=== PATIENT | male | born 1955 | race Caucasian/White ===

== ENCOUNTER 2018-08-12 08:45 | Day surgery (SDC) | payer MEDICARE, OTHER ==
[~2018-08-12 08:45] MED LIST: Prevnar 13-Val Conj/PF 0.5 ML SYRINGE IM ONE
[2018-08-12 09:04] LABS: #Basophils 0.1 thou/uL (0.0-0.2); #Eosinphils 0.1 thou/uL (0.0-0.7); #Lymphocytes 2.7 thou/uL (1.20-3.40); #Monocytes 0.9 thou/uL (0.11-0.59); #Neutrophils 6.6 thou/uL (1.40-6.50); %Basophils 1.1 % (0.0-1.0); %Eosinophils 1.2 % (0.0-10.0); %Lymphocytes 26.1 % (21.0-51.0); %Monocytes 8.1 % (0.0-10.0); %Neutrophils 63.5 % (42.0-75.0); Hemoglobin 14.7 g/dL (14.0-18.0); Mean Corpuscular Hemoglobin 30.8 pg (27.0-31.0); Mean Corpuscular Volume 93.5 fL (78.0-98.0); Mean Platelet Volume 6.5 fL (7.4-10.4); Platelet Count 477 thou/uL (130-400); RBC Distribution Width 11.2 % (11.5-14.5); Red Blood Cell (RBC) Count 4.78 mill/uL (4.70-6.10); White Blood Cell (WBC) Count 10.4 thou/uL (4.8-10.8)
[2018-08-12 09:15] LABS: PTT 26.5 SEC (22.9-36.1); Prothrombin Time 13.6 SEC (12.0-14.7)
[2018-08-12] MEDS ORDERED: Midazolam HCl 2 mg/2 ml Vial ONE (09:48)
[2018-08-12] MEDS ORDERED: Fentanyl 100 MCG/2 ML VIAL ONE (09:48)
[2018-08-12] MEDS ORDERED: Sodium Bicarbonate 2.5 MEQ/5 ML VIAL ONE (09:56)
[2018-08-12 11:03] VITALS: BMI 25.3
--- NOTE | 2018-08-12 12:23 | CT ---
CT GUIDED RIGHT ILIAC BONE MARROW ASPIRATION AND BONE BIOPSY: Date: 08-12-18 History: Newly diagnosed mantle cell lymphoma. Technique: Informed consent was obtained from the patient. The right iliac crest was localized using CT guidance . The overlying skin was prepped and draped in the usual sterile manner. A 1% Lidocaine solution was used to anesthetize the overlying soft tissues. An 11 gauge Jamshidi needle was introduced into the r ight iliac crest. Bone marrow aspirate was removed. Specimen was given to pathology. Initial bone biopsy was performed. No adequate specimen obtained. Therefore, a second biopsy was obta ined which yielded an adequate biopsy specimen. IMPRESSION: Successful CT guided bone marrow aspiration and bone core biopsy. POS: [facility]
== END 2018-08-12 11:35 | disposition home or self-care (01) ==
LOC: CT 08:45
PROVIDERS: ATTEND Internal Medicine Hematology & Oncology
PROC: 0QB23ZX Excision of Right Pelvic Bone, Percutaneous Approach, Diagnostic (ICD-10-PCS; principal; 2018-08-12)
DX: C83.11 Mantle cell lymphoma, lymph nodes of head, face, and neck (principal); Z79.899 Other long term (current) drug therapy
CPT/HCPCS: 20225; 36415; 77002; 85025; 85097; 85610; 85730; 88184; 88237; 88264; 88280; 88305; 88311; 88313; 88341; 88342; J2250; J3010

== ENCOUNTER 2018-08-13 08:46 | Outpatient (CLI) | payer MEDICARE ==
--- NOTE | 2018-08-13 14:00 | PET ---
NUCLEAR MEDICINE FDG PET CT: (Positron Emission Tomography) DATE: 08/13/18 HISTORY: 63-year-old male with lymphoma of left tonsil, C83.11, initial encounter. COMPARISON: None. TECHNIQUE: IV injection F-18 Fluorodeoxyglucose (FDG) dose: 10.8 mCi PET and attenuation-correction CT performed from upper portion of head to proximal thighs. FINDINGS: SUV (standard uptake value) numbers given are maximum SUVs. QCLR used to obtained the SUVs. At the right tracheoesophageal groove, posterior to the right lobe of the thyroid gland, there is an approximately 1 x 1.5 cm soft tissue density nodule with mildly increased uptake, SUV 3.1. This could be a parathyroid adenoma or a mildly enlarged lymph node. A 2.0 x 1.2 cm left Level IIA lymph node has SUV of 3.8. There is no abnormal hypermetabolic activity in the thorax, abdomen, or pelvis. IMPRESSION: 1. Hypermetabolic left Level IIA cervical lymph node. 2. Mildly hypermetabolic nodule in the right tracheoesophageal groove, posterior to the right lobe o f the thyroid gland. This could be a parathyroid adenoma. The other possibility is that this could be a mildly enlarged lymph node. Recommend correlation with serum parathyroid hormone (PTH) levels and serum calcium levels. MEHRDAD Moraes POS: [facility]
== END 2018-08-13 08:47 | disposition home or self-care (01) ==
LOC: PET 08:46
PROVIDERS: ATTEND Internal Medicine Hematology & Oncology
DX: C85.91 Non-Hodgkin lymphoma, unspecified, lymph nodes of head, face, and neck (principal); E04.1 Nontoxic single thyroid nodule; R59.0 Localized enlarged lymph nodes
CPT/HCPCS: 78815; A9552

== ENCOUNTER 2018-09-20 01:56 | Outpatient (CLI) | payer MEDICARE, OTHER ==
[2018-09-20 14:55] LABS: #Basophils 0.1 thou/uL (0.0-0.2); #Eosinphils 0.1 thou/uL (0.0-0.7); #Lymphocytes 1.9 thou/uL (1.20-3.40); #Monocytes 0.8 thou/uL (0.11-0.59); #Neutrophils 4.3 thou/uL (1.40-6.50); %Basophils 1.4 % (0.0-1.0); %Eosinophils 1.7 % (0.0-10.0); %Lymphocytes 26.3 % (21.0-51.0); %Monocytes 10.9 % (0.0-10.0); %Neutrophils 59.7 % (42.0-75.0); Hemoglobin 14.2 g/dL (14.0-18.0); Mean Corpuscular HGB CONC 33.3 g/dL (32.0-36.0); Mean Corpuscular Hemoglobin 31.3 pg (27.0-31.0); Mean Corpuscular Volume 93.9 fL (78.0-98.0); Mean Platelet Volume 7.3 fL (7.4-10.4); Platelet Count 328 thou/uL (130-400); RBC Distribution Width 11.9 % (11.5-14.5); Red Blood Cell (RBC) Count 4.56 mill/uL (4.70-6.10); White Blood Cell (WBC) Count 7.1 thou/uL (4.8-10.8)
[2018-09-20 15:19] LABS: Anion Gap 13 mmol/L (10-20); BUN (Urea Nitrogen) 11 mg/dL (8.4-25.7); Calc. Creatinine Clearance 0 mL/min (70-130); Calcium 9.7 mg/dL (7.8-10.44); Carbon Dioxide 28 mmol/L (23-31); Chloride 104 mmol/L (98-107); Estimated GFR-MDRD 74; Glucose 88 mg/dL (80-115); Sodium 141 mmol/L (136-145)
== END 2018-09-20 01:57 | disposition home or self-care (01) ==
LOC: LABBT 01:56
PROVIDERS: ATTEND Surgery
DX: Z01.812 Encounter for preprocedural laboratory examination (principal); C85.90 Non-Hodgkin lymphoma, unspecified, unspecified site
CPT/HCPCS: 80048; 85025

== ENCOUNTER 2018-09-20 12:27 | Outpatient (CLI) | payer MEDICARE, OTHER | END 2018-09-20 12:28 | disposition home or self-care (01) | LOC: ULT 12:27 | PROVIDERS: ATTEND Internal Medicine Hematology & Oncology | DX: Z51.11 Encounter for antineoplastic chemotherapy (principal); C83.11 Mantle cell lymphoma, lymph nodes of head, face, and neck; I08.1 Rheumatic disorders of both mitral and tricuspid valves; Z79.899 Other long term (current) drug therapy; Z01.812 Encounter for preprocedural laboratory examination; C85.90 Non-Hodgkin lymphoma, unspecified, unspecified site | CPT/HCPCS: 80048; 85025; 93306 ==

== ENCOUNTER 2018-09-23 05:39 | Day surgery (SDC) | payer MEDICARE, OTHER ==
[2018-09-20 14:19] VITALS: BMI 26.4
[2018-09-23] MEDS ORDERED: Lidocaine 2% PF 5 ML VIAL ONE (06:47)
[2018-09-23] MEDS ORDERED: Bupivacaine/Epinephrine 0.25% 30 ML VIAL ONE (06:47)
[2018-09-23] MEDS ORDERED: Fentanyl 100 MCG/2 ML VIAL ONE (07:09)
[2018-09-23] MEDS ORDERED: Midazolam HCl 2 mg/2 ml Vial ONE (07:16)
--- NOTE | 2018-09-23 08:52 | RAD ---
CHEST ONE VIEW: Indication: Rule out pneumothorax. Comparison: None. FINDINGS: There is a right IJ chest wall port in place. Lungs are clear. Heart size is normal. No pneumothorax is demonstrated. IMPRESSION: No pneumothorax seen. POS: [facility]
--- NOTE | 2018-09-23 10:11 | OP ---
DATE OF PROCEDURE: 09/23/2018 PREOPERATIVE DIAGNOSIS: Small cell lymphoma. POSTOPERATIVE DIAGNOSIS: Small cell lymphoma. PROCEDURE PERFORMED: Tunneled central line and subcutaneous port (MediPort CT injectable). ANESTHESIA: TIVA, local. ESTIMATED BLOOD LOSS: Minimal. COMPLICATIONS: None. SPECIMENS: None. FINDINGS: Tip of the catheter was at atriocaval junction. DESCRIPTION OF PROCEDURE: Th patient was taken to the operating room and laid supine on the operating room table. After sedation was obtained, bilateral neck and chest were prepped and draped in a sterile fashion. Local anesthetic was infiltrated over the right internal jugular vein. Internal jugular vein was cannulated using a 22-gauge finder needle, followed by a Seldinger needle. Wire was passed into the superior cava under fluoro guidance. A small amirah was made at the wire entrance site. A separate 3-cm incision was made in the right upper chest. Subcutaneous pocket was made below the lower incision. Tubing for the MediPort tunneled from the inferior to superior incision. The introducer sheath was placed over the wire into the superior vena cava under fluoro guidance. The dilator and wire were removed and the end of the catheter was sewed into the sheath. The sheath was peeled away. The end of the catheter was sewed. MediPort tubing was at the tip of the atriocaval junction. MediPort tubing was cut to fit the MediPort at the lower incision, connected to the MediPort, which was sewn to the chest wall in the subcutaneous pocket using Prolene. The MediPort was flushed and robert blood without difficulty, flushed with a heparin flush. The wounds were irrigated and closing using 4-0 Monocryl and Dermabond. The patient was sent to Recovery in stable condition. All instrument counts, needle counts, and lap counts were correct. Job ID: [id number]
[2018-09-23] MEDS ORDERED: PROPOFOL 200 MG/20 ML VIAL ONE (10:33)
== END 2018-09-23 09:30 | disposition home or self-care (01) ==
LOC: SDC 05:39
PROVIDERS: ATTEND Surgery
PROC: 0JH63WZ Insertion of Totally Implantable Vascular Access Device into Chest Subcutaneous Tissue and Fascia, Percutaneous Approach (ICD-10-PCS; principal; 2018-09-23)
DX: C83.00 Small cell B-cell lymphoma, unspecified site (principal); Z79.899 Other long term (current) drug therapy
CPT/HCPCS: 36561; 71045; C1788; J1642; J2001; J2250; J2704; J3010

== ENCOUNTER 2018-10-26 07:58 | Inpatient (IN) | payer MEDICARE, OTHER ==
[2018-10-26] MEDS ORDERED: Acetaminophen 500 MG TAB PO PRN (11:44)
[2018-10-26] MEDS ORDERED: diphenhydrAMINE 25 MG in Sodium Chloride 0.9% 50 ML IVPB SCH (12:15)
[2018-10-26] MEDS ORDERED: Rituximab 100 MG in Sodium Chloride 0.9% 100 ML IVPB SCH (12:30)
[2018-10-26 12:39] VITALS: BMI 25.7
[2018-10-26] MEDS: prednisoLONE 1% Ophth Susp 5 ml Bottle EA EYE SCH ×3 (12:55→20:52)
[2018-10-26 13:00] LABS: Anion Gap 12 mmol/L (10-20); BUN (Urea Nitrogen) 19 mg/dL (8.4-25.7); Calc. Creatinine Clearance 85 mL/min (70-130); Calcium 9.2 mg/dL (7.8-10.44); Carbon Dioxide 25 mmol/L (23-31); Chloride 104 mmol/L (98-107); Estimated GFR-MDRD 66; Glucose 89 mg/dL (80-115); Potassium 3.8 mmol/L (3.5-5.1); Sodium 137 mmol/L (136-145); Uric Acid 5.6 mg/dL (3.5-7.2)
[2018-10-26] MEDS ORDERED: SODIUM CHLORIDE 0.9% IVPB SCH ×2 (13:00)
[2018-10-26] MEDS ORDERED: RITUXIMAB IVPB SCH ×2 (13:00)
[2018-10-26 13:07] LABS: Hemoglobin 12.7 g/dL (14.0-18.0); Mean Corpuscular Hemoglobin 31.4 pg (27.0-31.0); Mean Corpuscular Volume 92.4 fL (78.0-98.0); Mean Platelet Volume 6.4 fL (7.4-10.4); Platelet Count 421 thou/uL (130-400); RBC Distribution Width 11.9 % (11.5-14.5); Red Blood Cell (RBC) Count 4.04 mill/uL (4.70-6.10); White Blood Cell (WBC) Count 7.1 thou/uL (4.8-10.8)
[2018-10-26 13:21] LABS: Band 9 % (5-11); Lymphocytes 21 % (21-51); MDiff Complete? YES; Monocytes 7 % (0-10); Neutrophil 63 % (42-75); Platelet Morphology Comment Appears Increased; RBC Morphology Normal
--- NOTE | 2018-10-26 16:42 | HP ---
The patient is being admitted for chemotherapy. ONCOLOGIST: Melvin Blake MD CHIEF COMPLAINT: Treatment for chemotherapy. HISTORY OF PRESENT ILLNESS: Mr. Fitzgerald is a pleasant 63-year-old gentleman, who has a history of mantle cell lymphoma, which is listed as stage IV. He is treated by Dr. Melvin Blake and he has had a couple of rounds of chemotherapy prior to this. Dr. Blake would like him admitted inpatient to monitor him for potential signs of adverse reactions to the chemotherapy. Currently, the patient does not have any complaints. He denies any headache or dizziness. No chest pain or shortness of breath. No PND. No orthopnea. No abdominal pain. No nausea. No vomiting. No leg pain or leg swelling. He says that he has had a couple of treatments before without any difficulty, but this will be the first time with this particular type of chemotherapy. REVIEW OF SYSTEMS: All systems were reviewed and are negative except for that mentioned in the history of present illness. PAST MEDICAL HISTORY: Significant for mantle cell carcinoma and non-Hodgkin's lymphoma, peptic ulcer disease as well as colon polyps. PAST SURGICAL HISTORY: He has had a left orchidectomy. He has had an EGD and colonoscopy as well as a tonsillectomy. FAMILY HISTORY: There is no history of any heritable diseases. ALLERGIES: NO KNOWN DRUG ALLERGIES. SOCIAL HISTORY: He is . He is a nonsmoker. He occasionally drinks a beer and he would like to be a full code. CURRENT MEDICATIONS: He occasionally takes Zofran and prednisone after chemotherapy rounds. PHYSICAL EXAMINATION: GENERAL: He is alert and oriented x4, in no acute distress. He is well developed and well nourished, and very well groomed. VITAL SIGNS: Blood pressure was 132/79, heart rate 59, respiratory rate of 16, and temperature was 98. HEENT: His pupils are equal, round, and reactive. Extraocular muscles are intact. His sclerae are anicteric. Throat; no erythema, no exudates. NECK: No adenopathy. No bruits. LUNGS: Clear to auscultation. There are no wheezing or rales. No rhonchi. CARDIOVASCULAR: He has a normal S1 and S2. There is no S3 or S4. No murmurs, clicks, or rubs. ABDOMEN: Soft. It is nontender and nondistended. Positive for bowel sounds. No rebound or guarding. EXTREMITIES: There is no clubbing or cyanosis. No edema. NEUROLOGICAL: The exam is grossly nonfocal. LABORATORY RESULTS: White blood cell count 7.1, hemoglobin 12.7, hematocrit is 37.4, and platelet count is 421. Sodium 137, potassium 3.8, chloride is 104, CO2 is 25, BUN of 19, creatinine 1.11, and glucose is 89. LDH was 232. ASSESSMENT AND PLAN: This is a pleasant 63-year-old gentleman, who is being admitted for chemotherapy. The plan is for him to undergo Rituxan and nova-C. His oncologist would like for him to be monitored with regard to his complete blood cell count and his neurological status. He anticipates that he will need to be in the hospital anywhere from about 3 to 5 days. He will therefore be admitted and we will monitor a daily CBC as well as uric acid and basic metabolic panel. Neuro checks periodically will make sure to manage any symptoms such as nausea or pain that may arise. Job ID: [id number]
--- NOTE | 2018-10-26 17:21 | CON ---
DATE OF CONSULTATION: 10/26/2018 REASON FOR CONSULT: Mantle cell lymphoma. HISTORY OF PRESENT ILLNESS: Mr. Fitzgerald is a 63-year-old gentleman, who was diagnosed with mantle cell lymphoma in July of 2018. He had a swollen tonsil and saw Dr. Alfaro, who performed a bilateral tonsillectomy and confirmed mantle cell lymphoma. He had a CT of the neck performed, which showed the enlarged left palatine tonsil. He underwent PET scan, which was negative except for the left level 2A lymph node with an SUV of 3.8. His bone marrow biopsy was negative for lymphoma. He then underwent a colonoscopy and endoscopy, which revealed mantle cell lymphoma in his small and large intestines. He began chemotherapy with a NORDIC regimen, which consist of Maxi-CHOP rotating with HiDAC. He underwent his cycle 1 of Maxi-CHOP on October 04. He tolerated it well with mild nausea and constipation. He did have some mucositis and alopecia. He is being admitted today for cycle 2 of NORDIC consisting of Rituxan and nova-C. PAST MEDICAL HISTORY: 1. Non-Hodgkin's lymphoma, 2011. 2. Peptic ulcer. 3. Colon polyps. PAST SURGICAL HISTORY: 1. Left orchiectomy. 2. Endoscopy. 3. Tonsillectomy. ALLERGIES: NO KNOWN DRUG ALLERGIES. HOME MEDICATIONS: 1. Zofran p.r.n. 2. Prednisone with chemo. FAMILY HISTORY: No family history of cancer. SOCIAL HISTORY: , has two kids, live with his spouse. No alcohol, tobacco, or illicit drug use. REVIEW OF SYSTEMS: A 10-point review of systems is negative except for noted in the HPI. PHYSICAL EXAMINATION: VITAL SIGNS: Temperature 97.6, pulse is 72, respiratory rate 18, BP is 129/85. He is 98% on room air. GENERAL: This is a well-developed, well-nourished male, in no acute distress. HEENT: Normocephalic, atraumatic. Pupils are equal and reactive to light. He has alopecia. NECK: Supple. He has an incision from his left cervical lymph node. CV is regular. LUNGS: Clear. ABDOMEN: Soft and nontender. Bowel sounds are positive. EXTREMITIES: No clubbing, cyanosis, or edema. SKIN: No rash. HEMATOLOGICAL: No petechiae or purpura. NEUROLOGICAL: Nonfocal. PSYCH: The patient is alert, oriented, and appropriate. PERTINENT LABS AND X-RAYS: Current WBCs are 7.1, hemoglobin 12.7, hematocrit 37.4, platelet count 421,000, neutrophils are 63%, bands 9%, lymphocytes 21%. Sodium is 137, potassium 3.8, chloride 104, CO2 is 25, BUN is 19, creatinine 1.11, glucose is 89, uric acid is 5.6, calcium 9.2, LDH is 232. ASSESSMENT: 1. Stage IV mantle cell lymphoma. 2. Admission for cycle 2 of NORDIC consisting of HiDAC. DISCUSSION: The patient has a 3-day treatment. He will be in the hospital to monitor for any neurological or visual changes. He will receive generic Neulasta subcu injection. We will follow his blood counts and discharge once stable. Thank you for the consult. Job ID: [id number]
[2018-10-26] MEDS: Palonosetron HCl 0.25 MG in Sodium Chloride 0.9% 50 ML IVPB SCH (20:21)
[2018-10-26] MEDS: Dexamethasone 10 MG in Sodium Chloride 0.9% 50 ML IVPB SCH (20:48)
[2018-10-26] MEDS: SODIUM CHLORIDE 0.9% IJ SCH (21:42)
[2018-10-26] MEDS: CYTARABINE IJ SCH (21:42)
[2018-10-27] MEDS: prednisoLONE 1% Ophth Susp 5 ml Bottle EA EYE SCH ×6 (02:14→20:53)
[2018-10-27 04:28] LABS: #Basophils 0.1 thou/uL (0.0-0.2); #Eosinphils 0.1 thou/uL (0.0-0.7); #Lymphocytes 0.4 thou/uL (1.20-3.40); #Monocytes 0.1 thou/uL (0.11-0.59); #Neutrophils 10.8 thou/uL (1.40-6.50); %Basophils 0.5 % (0.0-1.0); %Eosinophils 0.4 % (0.0-10.0); %Monocytes 1.2 % (0.0-10.0); %Neutrophils 94.9 % (42.0-75.0); Hemoglobin 12.7 g/dL (14.0-18.0); Mean Corpuscular HGB CONC 33.6 g/dL (32.0-36.0); Mean Corpuscular Volume 92.3 fL (78.0-98.0); Mean Platelet Volume 6.7 fL (7.4-10.4); Platelet Count 401 thou/uL (130-400); RBC Distribution Width 12.1 % (11.5-14.5); Red Blood Cell (RBC) Count 4.09 mill/uL (4.70-6.10); White Blood Cell (WBC) Count 11.4 thou/uL (4.8-10.8)
[2018-10-27 04:32] LABS: Anion Gap 13 mmol/L (10-20); BUN (Urea Nitrogen) 17 mg/dL (8.4-25.7); Calc. Creatinine Clearance 84 mL/min (70-130); Carbon Dioxide 23 mmol/L (23-31); Chloride 108 mmol/L (98-107); Estimated GFR-MDRD 65; Glucose 149 mg/dL (80-115); Potassium 4.2 mmol/L (3.5-5.1); Sodium 140 mmol/L (136-145); Uric Acid 6.1 mg/dL (3.5-7.2)
--- NOTE | 2018-10-27 11:15 | PRG ---
DATE OF SERVICE: 10/27/2018 SUBJECTIVE: The patient has reported a few various changes after treatment. His vision has been altered a bit. He has had a little tingling in his left arm and some involuntary movement in his left fifth finger, which has completely resolved. At this point, he feels like he has a good understanding of the treatment regimen and potential options and with the effects that the current regimen has had, although he feels well in general, he is concerned about continuing on because of the potential for neurologic symptom. OBJECTIVE: VITAL SIGNS: Temperature is 97.7, pulse 79, respirations 18, O2 saturation 93% on room air, BP 138/70. GENERAL APPEARANCE: Age-appropriate male, in no distress. HEART: Regular rate and rhythm without murmurs, gallops, or rubs. LUNGS: Clear to auscultation bilaterally. Good chest wall expansion and air exchange. ABDOMEN: Soft, nontender, and nondistended. Positive bowel sounds. No masses. No organomegaly. EXTREMITIES: Warm and dry with no edema. LABORATORY DATA: White count 11.4, hemoglobin 12.7, platelets 401. Chemistries notable for LDH of 229, glucose 149, chloride 108. IMPRESSION AND PLAN: Mantle cell lymphoma. The patient is receiving second course of [place] consisting of HiDAC per Oncology, discussed with Tatiana Root. The patient had some neurologic symptoms this morning. He is contemplating his decision to continue with the next dose today. He will be observed from a neurologic standpoint and then make that decision before the next dose was due this afternoon. At this point, it sounds like he is potentially leaning against continuing on with the therapy. I will continue to monitor. Job ID: [id number]
[2018-10-27] MEDS ORDERED: Bisacodyl 5 MG TAB PO SCH (18:15)
[2018-10-27] MEDS: Palonosetron HCl 0.25 MG in Sodium Chloride 0.9% 50 ML IVPB SCH (20:27)
[2018-10-27] MEDS: Dexamethasone 10 MG in Sodium Chloride 0.9% 50 ML IVPB SCH (20:56)
[2018-10-27] MEDS: SODIUM CHLORIDE 0.9% IJ SCH (21:45)
[2018-10-27] MEDS: CYTARABINE IJ SCH (21:45)
[2018-10-28] MEDS: prednisoLONE 1% Ophth Susp 5 ml Bottle EA EYE SCH ×6 (01:21→20:52)
[2018-10-28] MEDS ORDERED: Sodium Chloride 0.9% 20 ML ONE (08:02)
--- NOTE | 2018-10-28 08:06 | PDOC.PN ---
- Subjective Encounter Start Date: 10/28/18 Encounter Start Time: 09:00 Subjective: Patient reports no further vision problems or tingling. No N/V. No pain. - Objective MAR Reviewed: Yes Vital Signs & Weight: Vital Signs (12 hours) Temp Pulse Resp BP Pulse Ox 10/28/18 04:00 98.2 F 51 L 16 110/61 94 L 10/27/18 23:31 98.2 F 72 16 131/68 94 L Weight Weight 200 lb I&O: 10/27/18 10/28/18 10/29/18 06:59 06:59 06:59 Intake Total 2 2123 Balance 2211 2123 Result Diagrams: 10/28/18 07:54 10/28/18 07:54 Phys Exam - Physical Examination Constitutional: NAD HEENT: moist MMs Respiratory: no wheezing, no rales, no rhonchi Cardiovascular: RRR, no significant murmur Gastrointestinal: soft, positive bowel sounds Musculoskeletal: no edema Neurological: non-focal, moves all 4 limbs Psychiatric: normal affect, A&O x 3 Dx/Plan (1) Mantle cell lymphoma Code(s): C83.10 - MANTLE CELL LYMPHOMA, UNSPECIFIED SITE Status: Acute Qualifiers: Lymphoma site: multiple regions Qualified Code(s): C83.18 - Mantle cell lymphoma, lymph nodes of multiple sites - Plan cont current plan of care Likely home tomorrow when ok'd with Heme/Onc * . - Discharge Day Encounter end time: 09:20
[2018-10-28 08:07] LABS: #Lymphocytes 0.2 thou/uL (1.20-3.40); #Monocytes 0.2 thou/uL (0.11-0.59); %Lymphocytes 1.7 % (21.0-51.0); %Monocytes 1.2 % (0.0-10.0); %Neutrophils 97.1 % (42.0-75.0); Hemoglobin 12.7 g/dL (14.0-18.0); Mean Corpuscular HGB CONC 33.9 g/dL (32.0-36.0); Mean Corpuscular Hemoglobin 30.7 pg (27.0-31.0); Mean Corpuscular Volume 90.6 fL (78.0-98.0); Mean Platelet Volume 6.8 fL (7.4-10.4); Platelet Count 386 thou/uL (130-400); RBC Distribution Width 12.1 % (11.5-14.5); Red Blood Cell (RBC) Count 4.13 mill/uL (4.70-6.10); White Blood Cell (WBC) Count 12.3 thou/uL (4.8-10.8)
[2018-10-28 08:27] LABS: Anion Gap 14 mmol/L (10-20); BUN (Urea Nitrogen) 13 mg/dL (8.4-25.7); Calc. Creatinine Clearance 89 mL/min (70-130); Calcium 9.1 mg/dL (7.8-10.44); Carbon Dioxide 24 mmol/L (23-31); Chloride 106 mmol/L (98-107); Estimated GFR-MDRD 70; Glucose 142 mg/dL (80-115); Potassium 3.6 mmol/L (3.5-5.1); Sodium 140 mmol/L (136-145); Uric Acid 5.5 mg/dL (3.5-7.2)
[2018-10-28] MEDS ORDERED: PEGFILGRASTIM-JMDB 6 MG/0.6 ML SYRINGE SQ SCH (12:00)
[2018-10-28] MEDS: Bisacodyl 5 MG TAB PO SCH ×2 (16:50→20:53)
[2018-10-29] MEDS: prednisoLONE 1% Ophth Susp 5 ml Bottle EA EYE SCH ×4 (01:15→12:53)
[2018-10-29 04:30] LABS: #Lymphocytes 0.6 thou/uL (1.20-3.40); #Monocytes 0.4 thou/uL (0.11-0.59); %Basophils 0.1 % (0.0-1.0); %Eosinophils 0.1 % (0.0-10.0); %Lymphocytes 4.9 % (21.0-51.0); %Monocytes 3.4 % (0.0-10.0); %Neutrophils 91.6 % (42.0-75.0); Hemoglobin 11.6 g/dL (14.0-18.0); Mean Corpuscular HGB CONC 33.9 g/dL (32.0-36.0); Mean Corpuscular Hemoglobin 31.4 pg (27.0-31.0); Mean Corpuscular Volume 92.6 fL (78.0-98.0); Mean Platelet Volume 6.9 fL (7.4-10.4); Platelet Count 322 thou/uL (130-400); RBC Distribution Width 12.3 % (11.5-14.5); Red Blood Cell (RBC) Count 3.68 mill/uL (4.70-6.10)
[2018-10-29 04:42] LABS: Anion Gap 11 mmol/L (10-20); BUN (Urea Nitrogen) 18 mg/dL (8.4-25.7); Calc. Creatinine Clearance 96 mL/min (70-130); Calcium 8.3 mg/dL (7.8-10.44); Carbon Dioxide 26 mmol/L (23-31); Chloride 107 mmol/L (98-107); Estimated GFR-MDRD 77; Glucose 83 mg/dL (80-115); Potassium 3.6 mmol/L (3.5-5.1); Sodium 140 mmol/L (136-145)
--- NOTE | 2018-10-29 07:15 | PDOC.PN ---
- Subjective Encounter Start Date: 10/29/18 Encounter Start Time: 08:00 Subjective: Patient without complaints. No vision problems. No numbness/tingling /weak. -: No N/V. Eating well. - Objective MAR Reviewed: Yes Vital Signs & Weight: Vital Signs (12 hours) Temp Pulse Resp BP Pulse Ox 10/29/18 03:52 98.4 F 58 L 16 99/59 L 97 10/28/18 23:53 97.6 F 56 L 16 91/55 L 96 10/28/18 20:00 98.2 F 67 16 120/67 93 L 10/28/18 19:50 93 L Weight Weight 200 lb I&O: 10/28/18 10/29/18 10/30/18 06:59 06:59 06:59 Intake Total 2124 1320 Balance 2124 1320 Result Diagrams: 10/29/18 04:10 10/29/18 04:10 Phys Exam - Physical Examination Constitutional: NAD HEENT: moist MMs Respiratory: no wheezing, no rales, no rhonchi Cardiovascular: RRR, no significant murmur Gastrointestinal: soft, non-tender, positive bowel sounds Musculoskeletal: no edema Neurological: non-focal, moves all 4 limbs Psychiatric: normal affect, A&O x 3 Dx/Plan (1) Mantle cell lymphoma Code(s): C83.10 - MANTLE CELL LYMPHOMA, UNSPECIFIED SITE Status: Acute Qualifiers: Lymphoma site: multiple regions Qualified Code(s): C83.18 - Mantle cell lymphoma, lymph nodes of multiple sites - Plan cont current plan of mcc today, f/u with Dr. Blake. He has called in the prednisolone eye -: drops to be used q4 hours today and tomorrow. * . - Discharge Day Encounter end time: 08:30
[2018-10-29 09:23] VITALS: BP 130/60; TEMP 97.8
--- NOTE | 2018-10-29 11:37 | DIS ---
DATE OF ADMISSION: 10/26/2018 DATE OF DISCHARGE: 10/29/2018 PRIMARY CARE PHYSICIAN: Megan Andujar PRIMARY ONCOLOGIST: Melvin Blake MD REASON FOR ADMISSION: Chemotherapy treatment. DIAGNOSIS AT DISCHARGE: Mantle cell lymphoma. PROCEDURES: None. CONSULTATIONS: Heme Oncology, Dr. Blake. HISTORY OF PRESENT ILLNESS: This is a 63-year-old white male with a history of mantle cell lymphoma stage IV, treated by Dr. Melvin Blake. He has had some previous chemotherapy and Dr. Blake admitted him for monitoring with his next round of chemotherapy. The patient got cycle 2 of NORDIC consisting of HiDAC. He was given a 3-day treatment. First day, he did have some vision changes and tingling in his fingers. He did have prednisolone ophthalmic drops given in the hospital. The symptoms resolved and he has not had any recurrence. The patient finished his chemotherapy yesterday and then had Neulasta subcutaneous injection early this morning around 1 o'clock. He is doing well today. His white blood cell count remained stable at 12. No other cell count lines have dropped and he is asymptomatic. He is being discharged home. DISCHARGE MANAGEMENT: Discharged home. FOLLOWUP: Follow up with Dr. Melvin Blake on November 15. ACTIVITY: As tolerated. DIET: Regular diet. MEDICATIONS: 1. Prednisolone 1% ophthalmic suspension one drop in each eye q.4 hours today and tomorrow. Prescription called into the pharmacy by Dr. Blake. 2. Continue multivitamin 2 tablets daily. 3. Continue Zantac 150 mg twice a day. Job ID: [id number]
== END 2018-10-29 17:09 | disposition home or self-care (01) | DRG 847 ==
LOC: ONC 11:13
PROVIDERS: ADMIT Internal Medicine; ATTEND Internal Medicine
DX: Z51.11 Encounter for antineoplastic chemotherapy (principal); C83.18 Mantle cell lymphoma, lymph nodes of multiple sites; Z90.79 Acquired absence of other genital organ(s)
CPT/HCPCS: 36415; 80048; 83615; 84550; 85025; J1100; J1200; J1453; J2469; J3490; J7050; J9100; J9310; J9312; Q5108

== ENCOUNTER 2018-12-06 08:45 | Inpatient (IN) | payer MEDICARE, OTHER ==
[2018-12-07 11:43] VITALS: BMI 26.8
[2018-12-07 12:05] LABS: Band 4 % (5-11); Eosinophils 2 % (0-10); Hemoglobin 11.2 g/dL (14.0-18.0); Lymphocytes 9 % (21-51); MDiff Complete? YES; Mean Corpuscular HGB CONC 34.5 g/dL (32.0-36.0); Mean Corpuscular Hemoglobin 31.7 pg (27.0-31.0); Mean Corpuscular Volume 91.9 fL (78.0-98.0); Mean Platelet Volume 6.4 fL (7.4-10.4); Monocytes 15 % (0-10); Neutrophil 69 % (42-75); Platelet Count 369 thou/uL (130-400); Platelet Morphology Comment Appears Adequate; RBC Distribution Width 14.6 % (11.5-14.5); Red Blood Cell (RBC) Count 3.51 mill/uL (4.70-6.10)
[2018-12-07 12:07] LABS: Anion Gap 12 mmol/L (10-20); BUN (Urea Nitrogen) 14 mg/dL (8.4-25.7); Calc. Creatinine Clearance 98 mL/min (70-130); Carbon Dioxide 25 mmol/L (23-31); Chloride 106 mmol/L (98-107); Estimated GFR-MDRD 80; Glucose 102 mg/dL (80-115); Potassium 3.8 mmol/L (3.5-5.1); Sodium 139 mmol/L (136-145); Uric Acid 5.4 mg/dL (3.5-7.2)
[2018-12-07] MEDS ORDERED: Acetaminophen 500 MG TAB PO PRN (12:16)
[2018-12-07] MEDS ORDERED: diphenhydrAMINE 25 MG in Sodium Chloride 0.9% 50 ML IVPB SCH (12:30)
[2018-12-07] MEDS ORDERED: Rituximab 100 MG in Sodium Chloride 0.9% 100 ML IVPB SCH (12:30)
[2018-12-07] MEDS ORDERED: Dexamethasone 10 MG in Sodium Chloride 0.9% 50 ML IVPB SCH (12:30)
[2018-12-07] MEDS ORDERED: Palonosetron HCl 0.25 MG in Sodium Chloride 0.9% 50 ML IVPB SCH (12:30)
[2018-12-07] MEDS ORDERED: SODIUM CHLORIDE 0.9% IVPB SCH ×2 (13:00→13:30)
[2018-12-07] MEDS ORDERED: RITUXIMAB IVPB SCH ×2 (13:00→13:30)
[2018-12-07] MEDS: prednisoLONE 1% Ophth Susp 5 ml Bottle EA EYE SCH ×3 (13:43→19:44)
[2018-12-07] MEDS ORDERED: prednisoLONE 1% Ophth Susp 5 ml Bottle EA EYE SCH (17:00)
[2018-12-07] MEDS: Docusate 100 MG CAP PO PRN (18:28)
[2018-12-07] MEDS: Bisacodyl 5 MG TAB PO PRN (18:28)
[2018-12-07] MEDS ORDERED: Famotidine 20 MG TAB PO PRN (21:00)
[2018-12-07] MEDS: CYTARABINE IJ SCH (21:04)
[2018-12-07] MEDS: SODIUM CHLORIDE 0.9% IJ SCH (21:04)
[2018-12-07] MEDS: Multivit, Chewable SF 1 TAB PO SCH (21:06)
--- NOTE | 2018-12-07 21:43 | HP ---
CHIEF COMPLAINT: Chemotherapy for mantle cell carcinoma. HISTORY: This patient is a 63-year-old male, who presents to the emergency department as a direct admission from the [facility] for IV Yu-C treatment for mantle cell lymphoma, which was originally diagnosed in the tonsils. The patient has been through 3 rounds of chemotherapy. He did have a touch of neuropathy with previous round and now he has had some adjustments in his dosing in order to minimize the risk for that. However, he is here at this time to have a chemo infusion and monitoring for neuropathy in blood dyscrasias. Overall, the patient says he is doing quite well. He has had some problems with mild ileus in the past, but has been taking some medications on his own in order to maintain his bowel habits. Otherwise, he has no major complaints. REVIEW OF SYSTEMS: Negative. All systems reviewed and all pertinent positives and negatives noted in the history of present illness. Specifically, he has had normal appetite. Normal bowel and bladder habits. No musculoskeletal symptoms. No significant neurologic symptoms. PAST MEDICAL HISTORY: Notable for mantle cell carcinoma/non-Hodgkin lymphoma. He has had a history of peptic ulcer disease and colon polyps. PAST SURGICAL HISTORY: Left orchiectomy, EGD and colonoscopy, and tonsillectomy. FAMILY HISTORY: No history of any heritable diseases. SOCIAL HISTORY: The patient is a nonsmoker, nondrug user. He occasionally drinks beer. He is and he is full code. His would be his surrogate decision maker should that become necessary. ALLERGIES: NONE. HOME MEDICATIONS: Docusate, Dulcolax, prednisolone eye drops, Zantac 150 b.i.d. p.r.n., and multivitamin. PHYSICAL EXAMINATION: VITAL SIGNS: Temperature 97.9, pulse 60, respirations 16, O2 saturation 99% on room air, blood pressure 127/78. GENERAL APPEARANCE: Age-appropriate male, in no distress. Has alopecia. HEENT: PERRL. No OP lesions. NECK: Supple and symmetric. No lymphadenopathy, JVD, or carotid bruits. HEART: Regular rate and rhythm. No murmurs, gallops, or rubs. LUNGS: Clear to auscultation bilaterally with good chest wall expansion and air exchange. ABDOMEN: Soft, nontender, nondistended. Positive bowel sounds. No masses. No organomegaly. EXTREMITIES: No cyanosis, clubbing, or edema. NEUROLOGIC: The patient appears to have normal sensation and spontaneous movement of all extremities. LABORATORY DATA: White count 6.0, hemoglobin 11.2, platelets 369. Chemistries normal. LDH is 266. IMPRESSION AND PLAN: Mantle cell lymphoma. The patient is to receive iv Yu-C. We will continue to monitor for neutropenia or blood dyscrasias as well as neurotoxicity with frequent neurological assessment. The patient will need to stay approximately 3 days depending on his outcome. We will continue to monitor his bowel function as well. Job ID: [id number]
[2018-12-08] MEDS: prednisoLONE 1% Ophth Susp 5 ml Bottle EA EYE SCH ×6 (00:44→20:09)
[2018-12-08 04:52] LABS: #Basophils 0.1 thou/uL (0.0-0.2); #Lymphocytes 0.3 thou/uL (1.20-3.40); #Monocytes 0.1 thou/uL (0.11-0.59); #Neutrophils 9.1 thou/uL (1.40-6.50); %Basophils 0.7 % (0.0-1.0); %Eosinophils 0.2 % (0.0-10.0); %Lymphocytes 3.1 % (21.0-51.0); %Monocytes 1.5 % (0.0-10.0); %Neutrophils 94.5 % (42.0-75.0); Hemoglobin 11.4 g/dL (14.0-18.0); Mean Corpuscular HGB CONC 34.1 g/dL (32.0-36.0); Mean Corpuscular Hemoglobin 31.5 pg (27.0-31.0); Mean Corpuscular Volume 92.4 fL (78.0-98.0); Mean Platelet Volume 6.4 fL (7.4-10.4); Platelet Count 401 thou/uL (130-400); RBC Distribution Width 14.6 % (11.5-14.5); Red Blood Cell (RBC) Count 3.61 mill/uL (4.70-6.10); White Blood Cell (WBC) Count 9.6 thou/uL (4.8-10.8)
[2018-12-08 05:17] LABS: Anion Gap 11 mmol/L (10-20); BUN (Urea Nitrogen) 13 mg/dL (8.4-25.7); Calc. Creatinine Clearance 99 mL/min (70-130); Calcium 9.1 mg/dL (7.8-10.44); Carbon Dioxide 24 mmol/L (23-31); Chloride 109 mmol/L (98-107); Estimated GFR-MDRD 81; Glucose 137 mg/dL (80-115); Potassium 4.2 mmol/L (3.5-5.1); Sodium 140 mmol/L (136-145); Uric Acid 6.1 mg/dL (3.5-7.2)
[2018-12-08] MEDS: Multivit, Chewable SF 1 TAB PO SCH ×2 (08:33→20:10)
[2018-12-08] MEDS: CYTARABINE IJ SCH ×2 (09:25→22:24)
[2018-12-08] MEDS: SODIUM CHLORIDE 0.9% IJ SCH ×2 (09:25→22:24)
[2018-12-08] MEDS ORDERED: Palonosetron HCl 0.25 MG in Sodium Chloride 0.9% 50 ML IVPB SCH (12:00)
[2018-12-08] MEDS ORDERED: Dexamethasone 10 MG in Sodium Chloride 0.9% 50 ML IVPB SCH (12:00)
--- NOTE | 2018-12-08 14:46 | PRG ---
DATE OF SERVICE: 12/08/2018 SUBJECTIVE: The patient is seen and examined at the bedside. He is doing well. The only complaint he has is slight tingling in his fingers which is similar to the tingling he had after the first round of chemotherapy he received before. Otherwise, he does not have much of any other complaints to offer. OBJECTIVE: VITAL SIGNS: Blood pressure is 123/70, pulse is 85, temperature is 98.3, respirations 18, and O2 saturation is 95% on room air. HEENT: His head is atraumatic and normocephalic. Eyes are PERRLA. Sclerae are nonicteric. Oral mucosa is moist. NECK: Supple. LUNGS: Clear. HEART: S1 and S2 normal. No S3. No S4. No any murmur. ABDOMEN: Soft and nontender. EXTREMITIES: No clubbing, cyanosis, or edema. NEUROLOGICAL: He is alert and oriented x4. There are no any motor deficits. There is slightly diminished sensation over his fingertips bilaterally similar on both hands. LABORATORY DATA: Labs showed white count of 9.6, hemoglobin 11.4, hematocrit 33.4, platelet count is 401. Sodium of 140, potassium 4.2, chloride 109, CO2 of 24, BUN 13, creatinine 0.94. Lactate dehydrogenase 237. IMPRESSION AND PLAN: Mantle cell lymphoma. The patient is on cytarabine, dexamethasone, fosaprepitant, palonosetron, pegfilgrastim. He is doing well. He has just slight numbness in his fingertips bilaterally, but otherwise he is not showing any neurological involvement. His white count is holding in good range. It is 9.6, and all other cell counts are normal too, so we will continue the same regimen daily as per Dr. Blake's orders and daily labs with uric acid, LDH, BMP, and CBC. Job ID: [id number]
[2018-12-08] MEDS: Bisacodyl 5 MG TAB PO PRN (20:10)
[2018-12-08] MEDS: Docusate 100 MG CAP PO PRN (20:10)
--- NOTE | 2018-12-08 21:13 | CON ---
DATE OF CONSULTATION: REASON FOR CONSULTATION: Mantle cell lymphoma. HISTORY OF PRESENT ILLNESS: A 63-year-old male with stage IV high-risk mantle cell lymphoma, currently on [place] regimen, which consists of alternating Maxi-CHOP and/or HiDAC 3 cycles each, being admitted for cycle 4 for high-dose Yu-C and rituximab. The patient is feeling well and has no specific complaints other than mild constipation and fatigue. The patient is currently receiving a 50% dose reduction from the standard dosing of Yu-C due to patient concerns. He currently has very minimal numbness in his fingertips. No other complaints. REVIEW OF SYSTEMS: Ten-point review of systems negative except as per HPI. PAST MEDICAL HISTORY: Mantle cell lymphoma and peptic ulcer disease. PAST SURGICAL HISTORY: Left orchiectomy, EGD, colonoscopy, and tonsillectomy. FAMILY HISTORY: No cancers. SOCIAL HISTORY: Nonsmoker. Occasional alcohol. ALLERGIES: NONE. CURRENT MEDICATIONS: Reviewed. PHYSICAL EXAMINATION: VITAL SIGNS: Temperature 98.3, pulse 84, respirations 18, saturating 94% to 95% on room air, and blood pressure 121/78. GENERAL APPEARANCE: The patient is walking around, in no acute distress. LUNGS: Clear to auscultation. RESPIRATIONS: Nonlabored. CARDIAC: S1 and S2. Regular rhythm and rate. ABDOMEN: Soft, nondistended, and nontender. EXTREMITIES: No edema. NEUROLOGIC: Cranial nerves 2 through 12 are grossly intact. The patient has no tremor. No imbalance when walking. LABORATORY DATA: White blood cells 9.6, hemoglobin 11.4, platelets 401. Sodium 140, potassium 4.2, BUN 13, creatinine 0.94. LDH 237. ASSESSMENT AND PLAN: A 63-year-old male with stage IV high-risk mantle cell lymphoma, currently on [place] regimen, being admitted for high-dose Yu-C and rituximab. We will continue monitoring the patient's CBC and monitor him for neurotoxicity with frequent neuro checks. The patient is to continue a steroid eyedrops during admission and on discharge. If the patient does well with minimal side effects and stable blood counts, he may be discharged on Thursday after his Neulasta injection. Job ID: [id number]
[2018-12-09] MEDS: prednisoLONE 1% Ophth Susp 5 ml Bottle EA EYE SCH ×5 (02:32→17:21)
[2018-12-09 02:59] LABS: #Lymphocytes 0.2 thou/uL (1.20-3.40); #Monocytes 0.2 thou/uL (0.11-0.59); #Neutrophils 8.8 thou/uL (1.40-6.50); %Basophils 0.5 % (0.0-1.0); %Eosinophils 0.1 % (0.0-10.0); %Lymphocytes 1.6 % (21.0-51.0); %Monocytes 2.2 % (0.0-10.0); %Neutrophils 95.6 % (42.0-75.0); Hemoglobin 10.6 g/dL (14.0-18.0); Mean Corpuscular HGB CONC 34.4 g/dL (32.0-36.0); Mean Corpuscular Volume 93.1 fL (78.0-98.0); Mean Platelet Volume 6.5 fL (7.4-10.4); Platelet Count 314 thou/uL (130-400); RBC Distribution Width 14.9 % (11.5-14.5); Red Blood Cell (RBC) Count 3.32 mill/uL (4.70-6.10); White Blood Cell (WBC) Count 9.2 thou/uL (4.8-10.8)
[2018-12-09 03:27] LABS: Anion Gap 10 mmol/L (10-20); BUN (Urea Nitrogen) 16 mg/dL (8.4-25.7); Calc. Creatinine Clearance 107 mL/min (70-130); Calcium 8.8 mg/dL (7.8-10.44); Carbon Dioxide 23 mmol/L (23-31); Chloride 111 mmol/L (98-107); Estimated GFR-MDRD 88; Glucose 129 mg/dL (80-115); Sodium 140 mmol/L (136-145); Uric Acid 5.5 mg/dL (3.5-7.2)
[2018-12-09] MEDS: Multivit, Chewable SF 1 TAB PO SCH (08:39)
[2018-12-09] MEDS: CYTARABINE IJ SCH (09:29)
[2018-12-09] MEDS: SODIUM CHLORIDE 0.9% IJ SCH (09:29)
[2018-12-09] MEDS ORDERED: PEGFILGRASTIM-JMDB 6 MG/0.6 ML SYRINGE SQ SCH (13:30)
--- NOTE | 2018-12-09 15:46 | PRG ---
DATE OF SERVICE: 12/09/2018 SUBJECTIVE: The patient is seen and examined at the bedside. He is doing quite well. He does not have more tingling in his fingertips or any other problems suggestive of some neurological side effects of his chemotherapy. OBJECTIVE: VITAL SIGNS: Blood pressure is 112/63, pulse is 73, temperature is 98.3, respiratory rate is 16, O2 saturation is 93% on room air. HEENT: His head is atraumatic and normocephalic. Eyes are PERRLA. Sclerae are nonicteric. Oral mucosa is moist. NECK: Supple. LUNGS: Clear. HEART: S1 and S2 normal. ABDOMEN: Soft and nontender. EXTREMITIES: No clubbing, cyanosis, or edema. NEUROLOGICAL: He is alert and oriented x4. LABORATORY DATA: Labs showed white count of 9.2, hemoglobin 10.6, hematocrit 30.9, platelet count is 314. Sodium of 140, potassium 4.0, chloride 111, CO2 of 23, BUN 16, creatinine 0.87, lactate dehydrogenase 191. IMPRESSION: 1. Mantle cell lymphoma. 2. The patient's cell counts are doing well. He is receiving [place] regimen. Apparently, he will need to continue his steroid eyedrops at the time of discharge, will be scheduled for the Neulasta injection tomorrow and most likely discharged home after that. Job ID: [id number]
[2018-12-10] MEDS: Multivit, Chewable SF 1 TAB PO SCH ×2 (00:22→06:52)
[2018-12-10] MEDS: prednisoLONE 1% Ophth Susp 5 ml Bottle EA EYE SCH ×5 (00:23→12:11)
[2018-12-10 05:59] LABS: #Lymphocytes 0.4 thou/uL (1.20-3.40); #Monocytes 0.1 thou/uL (0.11-0.59); #Neutrophils 4.4 thou/uL (1.40-6.50); %Basophils 0.3 % (0.0-1.0); %Eosinophils 0.2 % (0.0-10.0); %Lymphocytes 8.3 % (21.0-51.0); %Monocytes 2.9 % (0.0-10.0); %Neutrophils 88.3 % (42.0-75.0); Hemoglobin 8.5 g/dL (14.0-18.0); Mean Corpuscular HGB CONC 34.4 g/dL (32.0-36.0); Mean Corpuscular Hemoglobin 32.5 pg (27.0-31.0); Mean Corpuscular Volume 94.4 fL (78.0-98.0); Mean Platelet Volume 6.6 fL (7.4-10.4); Platelet Count 299 thou/uL (130-400); RBC Distribution Width 15.1 % (11.5-14.5); Red Blood Cell (RBC) Count 2.61 mill/uL (4.70-6.10)
[2018-12-10] MEDS ORDERED: Ondansetron ODT 4 MG TAB PO PRN (06:10)
[2018-12-10 06:39] LABS: Anion Gap 10 mmol/L (10-20); BUN (Urea Nitrogen) 17 mg/dL (8.4-25.7); Calc. Creatinine Clearance 114 mL/min (70-130); Calcium 8.3 mg/dL (7.8-10.44); Carbon Dioxide 26 mmol/L (23-31); Chloride 108 mmol/L (98-107); Estimated GFR-MDRD Greater than 90; Glucose 77 mg/dL (80-115); Potassium 3.5 mmol/L (3.5-5.1); Sodium 140 mmol/L (136-145); Uric Acid 4.8 mg/dL (3.5-7.2)
[2018-12-10] MEDS: Bisacodyl 5 MG TAB PO PRN (06:53)
[2018-12-10] MEDS: Docusate 100 MG CAP PO PRN (06:53)
[2018-12-10 08:45] VITALS: BP 106/64; TEMP 97.8
--- NOTE | 2018-12-11 04:21 | DIS ---
DATE OF ADMISSION: 12/07/2018 DATE OF DISCHARGE: 12/10/2018 DISCHARGE DISPOSITION: Home. FOLLOWUP VISITS: 1. Follow up with primary care physician in 1 week. 2. Follow up with Oncology Service as scheduled. The patient was seen and examined on the day of discharge. Denies any new complaints. No chest pain, shortness of breath, or palpitations. DISCHARGE MEDICATIONS: Same as admission medications. BRIEF HOSPITAL COURSE: The patient is a 63-year-old male with mantle cell lymphoma was [facility] for chemotherapy. He is currently on [place] regimen. He was admitted on 12/07/2018. He received high dose of ASHLEY-C and rituximab. He will receive pegfilgrastim 6 mg prior to discharge. He appears stable for discharge. FINAL DIAGNOSES: 1. Mantle cell lymphoma, admitted for chemotherapy. 2. Peptic ulcer disease. 3. Chronic anemia. PLAN: Plan of care was discussed with the patient in detail. He stated understanding. Job ID: [id number]
== END 2018-12-10 12:46 | disposition home or self-care (01) | DRG 847 ==
LOC: ONC 12-07 11:13
PROVIDERS: ADMIT Internal Medicine Hematology & Oncology; ATTEND Internal Medicine Hematology & Oncology
DX: Z51.11 Encounter for antineoplastic chemotherapy (principal); C83.10 Mantle cell lymphoma, unspecified site; R20.0 Anesthesia of skin; T45.1X5A Adverse effect of antineoplastic and immunosuppressive drugs, initial encounter; Z90.89 Acquired absence of other organs; Z90.79 Acquired absence of other genital organ(s)
CPT/HCPCS: 80048; 83615; 84550; 85025; J1100; J1200; J1453; J2469; J3490; J7050; J9100; J9310; J9312; Q0162; Q5108

== ENCOUNTER 2019-01-19 10:03 | Outpatient (CLI) | payer MEDICARE, OTHER ==
--- NOTE | 2019-01-19 13:48 | PET ---
Exam: PET CT WITH ATTENUATION CORRECTION: HISTORY: Mantle cell lymphoma. COMPARISON: 08/13/2018. TECHNIQUE: PET scan with CT attenuation correction was performed from the skull vertex to the proxima l thighs. Patient was administered 10.8 mCi of [id number] FINDINGS: Head and neck: Previously noted hypermetabolic left level 3 lymph node is not appreciated. The previo usly noted hyper metabolic lymph node in the right tracheoesophageal groove is also no longer appreciated. There is no evidence of neck lymphadenopathy/hypermetabolic lymph nodes. Chest: No evidence of hypermetabolic lymph nodes. Abdomen and pelvis: No evidence of hypermetabolic lymph nodes. Osseous structures: No evidence of hypermetabolic activity. No abnormal FDG localization. IMPRESSION: There does appear to be appropriate response to therapy. No evidence of abnormal FDG localization. Transcribed Date/Time: 01/19/2019 2:23 PM
== END 2019-01-19 10:04 | disposition home or self-care (01) ==
LOC: PET 10:03
PROVIDERS: ATTEND Internal Medicine Hematology & Oncology
DX: C83.11 Mantle cell lymphoma, lymph nodes of head, face, and neck (principal)
CPT/HCPCS: 78815; A9552

== ENCOUNTER 2019-01-24 07:42 | Day surgery (SDC) | payer MEDICARE, OTHER ==
[2019-01-24 08:03] LABS: PTT 26.6 SEC (22.9-36.1); Prothrombin Time 13.5 SEC (12.0-14.7)
--- NOTE | 2019-01-24 14:57 | CT ---
CT-GUIDED BONE MARROW BIOPSY MODERATE SEDATION: DATE: 01/24/2019 HISTORY: 63-year-old male with lymphoma. Restaging, follow-up. TECHNIQUE: Conscious sedation was discussed with the patient prior to the procedure. Patient was placed prone on CT table skin directly posterior to the left PSIS was prepared and draped in usual sterile fashion. 25-gauge needle used to apply buffered lidocaine superficially, then deeply to the periosteu m of the PSIS (posterior superior iliac spine). 11-gauge introducer needle with stylette advanced with stylette embedded in the cortex of bone. Stylette removed. 10 mL of bone marrow fluid aspirated and given to blood and plasma laboratory assistant. Mechanical drill of on control biopsy system connected to the 11-gauge hollow biopsy needle and advanced 8 cm, and immediately retracted, yielding 8 cm long core t issue sample of bone, given to technicians. Patient tolerated procedure well. No complications. Prior to lidocaine administration, patient was given 25 mcg of fentanyl and 1 myelogram of Versed, IV by radiology nurse. The patient was monitored by the radiology nurse throughout the procedure. IMPRESSION: Successful random bone marrow biopsy with 10 mL aspirate and 8 cm long 11-gauge core bone marrow veronica monge.
== END 2019-01-24 11:10 | disposition home or self-care (01) ==
LOC: CT 07:42
PROVIDERS: ATTEND Internal Medicine Hematology & Oncology
PROC: 07DR3ZX Extraction of Iliac Bone Marrow, Percutaneous Approach, Diagnostic (ICD-10-PCS; principal; 2019-01-24)
PROC: 079T3ZX Drainage of Bone Marrow, Percutaneous Approach, Diagnostic (ICD-10-PCS; 2019-01-24)
DX: C83.10 Mantle cell lymphoma, unspecified site (principal); D75.89 Other specified diseases of blood and blood-forming organs
CPT/HCPCS: 20225; 36415; 77012; 85097; 85610; 85730; 88184; 88237; 88264; 88280; 88305; 88313; 88341; 88342

== ENCOUNTER 2020-03-08 08:20 | Outpatient (CLI) | payer MEDICARE, OTHER ==
--- NOTE | 2020-03-08 10:24 | PET ---
A.M.: PET scan with CT attenuation correction COMPARISON: 01/19/2019, 08/13/2018 HISTORY: Mantle cell lymphoma, unspecified site. Stem cell transplant status. 1 year post treatment. Restaging. TECHNIQUE: PET scan with CT attenuation correction was performed from the skull vertex to the proxima l thighs following the intravenous administration of 12.5 mCi of [id number] FINDINGS: Head and neck: No abnormal FDG localization. CHEST: No abnormal FDG localization no abnormal FDG localization in the mediastinum. CT used for atte nuation correction demonstrates dependent atelectatic changes. Abdomen pelvis: Physiologic distribution of the radiotracer. No evidence of abnormal FDG localization . Osseous structures: There does appear to be FDG localization involving the T4, T5, T6, T7, T8, T9 and T10 vertebral bodies. CT used for attenuation correction does not demonstrate any discrete intervertebral lesions. The maximum SUV at 2.3 at T4, 2.3 at T5, 2.5 at T7, 2.3 at T8, 2.6 at T9 and 2.5 and T10. Uptake of in the mid to distal thoracic spine is at the upper limits of normal. IMPRESSION: 1. No evidence of recurrent disease.
== END 2020-03-08 08:21 | disposition home or self-care (01) ==
LOC: PET 08:20
PROVIDERS: ATTEND Internal Medicine Hematology & Oncology
DX: C83.10 Mantle cell lymphoma, unspecified site (principal); Z94.84 Stem cells transplant status
CPT/HCPCS: 78815; 80061; 82232; 82306; 82728; 82784 ×3; 83001; 83002; 83540; 83550; 83615; 84270; 84403; 84439; A9552; 36415; 80053; 84443; 85025